=== PATIENT | female | born 1940 | race Caucasian/White ===

== ENCOUNTER 2022-11-18 13:40 | Emergency (ER) | payer BC ==
[2022-11-18 14:09] VITALS: BP 111/72; PULSE 68; RESP 20; TEMP 97.8; BMI 34.7
[2022-11-18] MEDS ORDERED: ACETAMINOPHEN 325 MG TABLET (FP) PO ONE (14:29)
[2022-11-18] MEDS ORDERED: ACETAMINOPHEN 325 MG TABLET (FP) ONE (14:31)
== END 2022-11-18 15:08 | disposition home or self-care (01) ==
LOC: JERFT 13:40
DX: M25.561 Pain in right knee (principal); M25.571 Pain in right ankle and joints of right foot
CPT/HCPCS: 73560-TC-RT-FY; 73610-TC-RT-FY; 93005; 93010; 99284-25

== ENCOUNTER 2024-05-10 19:29 | Inpatient (IN) | payer BC ==
[2024-05-10 19:54] VITALS: BMI 32.9
[2024-05-10] MEDS ORDERED: ONDANSETRON 4 MG/2 ML VIAL ONE (20:25)
[2024-05-10] MEDS ORDERED: ACETAMINOPHEN INJECTION 100 ML IVPB ONE (20:26)
[2024-05-10] MEDS: ACETAMINOPHEN 1000 MG/100 ML BAG IVPB ONE (20:47)
[2024-05-10] MEDS: SODIUM CHLORIDE 0.9% 500 ML INFUS.BAG IV ONE (20:47)
[2024-05-10] MEDS: ONDANSETRON 4 MG/2 ML VIAL IVPUSH ONE (20:48)
[2024-05-10 20:53] LABS: BASO % 0.4 % (0-2.0); EOS % 0.1 % (0-4.5); HEMATOCRIT 42.3 % (32.4-45.2); HEMOGLOBIN 14.2 GM/dL (10.7-15.3); LYMPH % 4.5 % (8-40); MCHC 33.6 g/dl (32.0-36.0); MEAN PLT VOLUME 10.2 fl (7.5-11.1); MONO % 5.9 % (3.8-10.2); NEUT % 89.1 % (42.8-82.8); PLATELET COUNT 274 10^3/uL (134-434); RBC 4.45 M/mm3 (3.60-5.2); RDW 14.9 % (11.6-15.6); WHITE BLOOD COUNT 17.6 K/mm3 (4.0-10.0)
[2024-05-10 21:02] LABS: INR 1.04 (0.83-1.09)
[2024-05-10 21:05] LABS: ACTIVATED PTT 29.8 SECONDS (25.2-36.5)
[2024-05-10 21:19] LABS: CALCIUM 9.3 mg/dL (8.5-10.1)
[2024-05-10 21:20] LABS: ALBUMIN 3.8 g/dl (3.4-5.0); BLOOD UREA NITROGEN 13.7 mg/dL (7-18); MAGNESIUM 1.9 mg/dL (1.8-2.4)
[2024-05-10 21:23] LABS: CREATININE 0.9 mg/dL (0.55-1.3)
[2024-05-10 21:24] LABS: BILIRUBIN,TOTAL 1.1 mg/dL (0.2-1); TOT PROT 7.7 g/dl (6.4-8.2)
[2024-05-11] MEDS ORDERED: CEFTRIAXONE 1 GM/50 ML BAG ONE (01:02)
[2024-05-11] MEDS ORDERED: KETOROLAC TROMETHAMINE 15 MG/ML VIAL ONE (01:02)
[2024-05-11] MEDS: CEFTRIAXONE 1 GM in DEXTROSE 5%-WATER - 50 ML IVPB ONE (01:13)
[2024-05-11] MEDS: KETOROLAC TROMETHAMINE 15 MG/ML VIAL IVPUSH ONE (01:13)
[2024-05-11] MEDS ORDERED: AZITHROMYCIN IVPB 500 MG/250 ML BAG IVPB ONE (01:26)
[2024-05-11 02:09] LABS: POTASSIUM 4.3 mmol/L (3.5-5.1)
[2024-05-11 02:10] LABS: CALCIUM 8.8 mg/dL (8.5-10.1)
[2024-05-11 02:11] LABS: BLOOD UREA NITROGEN 12.8 mg/dL (7-18)
[2024-05-11 02:14] LABS: CREATININE 0.8 mg/dL (0.55-1.3)
[2024-05-11] MEDS: AZITHROMYCIN IVPB 500 MG in DEXTROSE 5%-WATER - 250 ML IVPB ONE (02:15)
[2024-05-11 03:48] LABS: PH,URINE 6.5 (5.0-8.0); URINE APPEARANCE CLEAR; URINE BILIRUBIN NEGATIVE (NEGATIVE); URINE COLOR YELLOW; URINE GLUCOSE (UA) NEGATIVE (NEGATIVE); URINE KETONE NEGATIVE (NEGATIVE); URINE LEUK ESTERASE NEGATIVE (NEGATIVE); URINE NITRITE NEGATIVE (NEGATIVE); URINE PROTEIN NEGATIVE (NEGATIVE); URINE UROBILINOGEN 0.2 mg/dL (0.2-1.0)
[2024-05-11 07:11] LABS: BASO % 1.1 % (0-2.0); EOS % 0.1 % (0-4.5); HEMATOCRIT 38.1 % (32.4-45.2); HEMOGLOBIN 12.6 GM/dL (10.7-15.3); LYMPH % 7.7 % (8-40); MCH 32.1 pg (25.7-33.7); MCHC 33.1 g/dl (32.0-36.0); MEAN CELL VOLUME 97.2 fl (80-96); MEAN PLT VOLUME 10.1 fl (7.5-11.1); MONO % 5.7 % (3.8-10.2); NEUT % 85.4 % (42.8-82.8); PLATELET COUNT 198 10^3/uL (134-434); RBC 3.92 M/mm3 (3.60-5.2); RDW 14.5 % (11.6-15.6); WHITE BLOOD COUNT 10.4 K/mm3 (4.0-10.0)
[2024-05-11 07:33] LABS: POTASSIUM 4.7 mmol/L (3.5-5.1)
[2024-05-11 07:39] LABS: CREATININE 0.7 mg/dL (0.55-1.3)
[2024-05-11] MEDS ORDERED: ESCITALOPRAM OXALATE 10 MG TABLET ONE (10:24)
[2024-05-11] MEDS ORDERED: LOSARTAN POTASSIUM 50 MG TABLET ONE (10:24)
[2024-05-11] MEDS ORDERED: amLODIPine BESYLATE 10 MG TABLET (FP) ONE (10:24)
[2024-05-11] MEDS: LOSARTAN POTASSIUM 50 MG TABLET PO SCH (10:41)
[2024-05-11] MEDS: ESCITALOPRAM OXALATE 10 MG TABLET PO SCH (10:41)
[2024-05-11] MEDS: amLODIPine BESYLATE 10 MG TABLET (FP) PO SCH (10:41)
[2024-05-11] MEDS: ALLOPURINOL 300 MG TABLET (FP) PO SCH (10:41)
[2024-05-11] MEDS ORDERED: ALBUTEROL SO4 2.5/IPRATROPIUM 0.5 INH SOL 3 ML VIAL.NEB. NEB PRN (11:03)
[2024-05-11] MEDS ORDERED: ACETAMINOPHEN 325 MG TABLET (FP) ONE (11:43)
[2024-05-11] MEDS: ACETAMINOPHEN 325 MG TABLET (FP) PO PRN (11:49)
[2024-05-11] MEDS: ATORVASTATIN CA 20 MG TABLET (FP) PO SCH (21:39)
[2024-05-11] MEDS: POLYETHYLENE GLYCOL (HEALTHYLAX) 3350 17 GM PACKET PO ONE (23:20)
[2024-05-12 08:50] LABS: BASO % 0.4 % (0-2.0); EOS % 0.9 % (0-4.5); HEMATOCRIT 36.4 % (32.4-45.2); HEMOGLOBIN 12.4 GM/dL (10.7-15.3); LYMPH % 11.1 % (8-40); MCH 32.4 pg (25.7-33.7); MCHC 34.1 g/dl (32.0-36.0); MONO % 12.2 % (3.8-10.2); NEUT % 75.4 % (42.8-82.8); PLATELET COUNT 216 10^3/uL (134-434); RBC 3.83 M/mm3 (3.60-5.2); RDW 14.8 % (11.6-15.6); WHITE BLOOD COUNT 8.2 K/mm3 (4.0-10.0)
[2024-05-12 09:02] LABS: POTASSIUM 3.9 mmol/L (3.5-5.1)
[2024-05-12 09:05] LABS: ALBUMIN 3.2 g/dl (3.4-5.0); CALCIUM 8.9 mg/dL (8.5-10.1)
[2024-05-12 09:08] LABS: CREATININE 0.8 mg/dL (0.55-1.3)
[2024-05-12 09:10] LABS: BILIRUBIN,TOTAL 0.8 mg/dL (0.2-1)
[2024-05-12] MEDS: CEFTRIAXONE 1 GM in DEXTROSE 5%-WATER - 50 ML IVPB SCH (09:22)
[2024-05-12] MEDS: AZITHROMYCIN IVPB 500 MG/250 ML BAG IVPB SCH (09:23)
[2024-05-13 08:21] LABS: BASO % 0.7 % (0-2.0); EOS % 0.9 % (0-4.5); HEMATOCRIT 34.8 % (32.4-45.2); HEMOGLOBIN 11.6 GM/dL (10.7-15.3); LYMPH % 12.7 % (8-40); MCH 31.8 pg (25.7-33.7); MCHC 33.4 g/dl (32.0-36.0); MEAN CELL VOLUME 95.3 fl (80-96); MONO % 12.8 % (3.8-10.2); NEUT % 72.9 % (42.8-82.8); PLATELET COUNT 207 10^3/uL (134-434); RBC 3.65 M/mm3 (3.60-5.2); RDW 14.5 % (11.6-15.6); WHITE BLOOD COUNT 8.6 K/mm3 (4.0-10.0)
[2024-05-13 08:26] LABS: POTASSIUM 3.6 mmol/L (3.5-5.1)
[2024-05-13 08:28] LABS: ALBUMIN 2.7 g/dl (3.4-5.0); CALCIUM 8.2 mg/dL (8.5-10.1)
[2024-05-13 08:29] LABS: BLOOD UREA NITROGEN 15.8 mg/dL (7-18)
[2024-05-13 08:32] LABS: CREATININE 0.5 mg/dL (0.55-1.3)
[2024-05-13 08:33] LABS: BILIRUBIN,TOTAL 0.6 mg/dL (0.2-1); TOT PROT 5.6 g/dl (6.4-8.2)
[2024-05-14] MEDS: HEPARIN NA (PORCINE) 5,000 UNITS/ML 1ML VIAL SQ SCH (12:05)
[2024-05-15 09:03] LABS: EOS % 2.7 % (0-4.5); HEMOGLOBIN 12.4 GM/dL (10.7-15.3); MCH 31.3 pg (25.7-33.7); MCHC 32.7 g/dl (32.0-36.0); MEAN CELL VOLUME 95.6 fl (80-96); MEAN PLT VOLUME 10.2 fl (7.5-11.1); MONO % 11.3 % (3.8-10.2); PLATELET COUNT 247 10^3/uL (134-434); RBC 3.97 M/mm3 (3.60-5.2); RDW 14.4 % (11.6-15.6); WHITE BLOOD COUNT 8.1 K/mm3 (4.0-10.0)
[2024-05-15 10:35] LABS: BLOOD UREA NITROGEN 14.5 mg/dL (7-18)
[2024-05-15 10:38] LABS: CREATININE 0.6 mg/dL (0.55-1.3)
[2024-05-15 10:40] LABS: BILIRUBIN,TOTAL 0.8 mg/dL (0.2-1)
[2024-05-16] MEDS: AMOX TR/POT CLAV 875MG/125MG TABLETS (FP) PO SCH (17:55)
[2024-05-18] MEDS: guaiFENesin/CODEINE 5 ML UNIT-DOSE CUPS PO PRN (09:55)
[2024-05-19 14:29] VITALS: RESP 18
[2024-05-21 10:14] LABS: BASO % 0.8 % (0-2.0); HEMATOCRIT 35.1 % (32.4-45.2); HEMOGLOBIN 11.6 GM/dL (10.7-15.3); LYMPH % 20.4 % (8-40); MCH 31.3 pg (25.7-33.7); MCHC 33.1 g/dl (32.0-36.0); MEAN CELL VOLUME 94.7 fl (80-96); MONO % 6.5 % (3.8-10.2); NEUT % 68.3 % (42.8-82.8); PLATELET COUNT 305 10^3/uL (134-434); RBC 3.71 M/mm3 (3.60-5.2); RDW 14.7 % (11.6-15.6); WHITE BLOOD COUNT 6.7 K/mm3 (4.0-10.0)
[2024-05-21 10:42] LABS: POTASSIUM 3.7 mmol/L (3.5-5.1)
[2024-05-21 10:46] LABS: CALCIUM 8.9 mg/dL (8.5-10.1)
[2024-05-21 10:47] LABS: ALBUMIN 2.7 g/dl (3.4-5.0); BLOOD UREA NITROGEN 14.1 mg/dL (7-18)
[2024-05-21 10:49] LABS: CREATININE 0.7 mg/dL (0.55-1.3)
[2024-05-21 10:50] LABS: BILIRUBIN,TOTAL 0.4 mg/dL (0.2-1); TOT PROT 5.9 g/dl (6.4-8.2)
[2024-05-21 14:55] VITALS: BP 116/66; PULSE 94; TEMP 98.8
== END 2024-05-21 18:10 | DRG 194 ==
LOC: JER 19:29 → JERBED 05-11 01:05 → J6S 05-11 14:56
PROVIDERS: ADMIT Internal Medicine; ATTEND Internal Medicine
DX: J18.9 Pneumonia, unspecified organism (principal); J98.11 Atelectasis; I10 Essential (primary) hypertension; E78.5 Hyperlipidemia, unspecified; Z85.41 Personal history of malignant neoplasm of cervix uteri; M10.9 Gout, unspecified; M15.9 Polyosteoarthritis, unspecified; F32.A Depression, unspecified
CPT/HCPCS: 0241U-QW; 36415; 70450-TC; 70486-TC; 71045-TC-FY; 71250-TC; 72125-TC; 80048; 80053; 81003; 83735; 84484; 85025; 85610; 85730; 86850; 86900; 86901; 87040; 87070; 87086; 87205; 87899; 93005; 93010; 94761; 97116-GP; 97162-GP; 99285-25; J0131; J1644